=== PATIENT | male | born 1960 | race Caucasian/White ===

== ENCOUNTER 2022-05-03 12:16 | Emergency (ER) | payer BC, OTHER ==
[~2022-05-03] VITALS: Ht 175.3 cm; Wt 129.3 kg
[2022-05-03 12:32] VITALS: BP_SYST 137
[2022-05-03] MEDS ORDERED: TRAM50TA2 PO (14:59)
[2022-05-03] MEDS ORDERED: RIVA15TA PO (14:59)
[2022-05-03] MEDS ORDERED: RIVA20TA PO (14:59)
[2022-05-03 15:25] VITALS: BP_SYST 137
== END 2022-05-03 15:26 | disposition home or self-care (01) ==
LOC: SED 12:16
DX: I82.401 Acute embolism and thrombosis of unspecified deep veins of right lower extremity (principal); I10 Essential (primary) hypertension; E11.9 Type 2 diabetes mellitus without complications; I48.91 Unspecified atrial fibrillation; Z79.899 Other long term (current) drug therapy
CPT/HCPCS: 93971; 99284